=== PATIENT | female | born 1975 | race American Indian/Alaskan Native ===

== ENCOUNTER 2017-05-05 02:12 | Inpatient (IN) | payer BC ==
[2017-05-05] MEDS ORDERED: ASPIRIN PO ONE ×2 (02:46→12:00)
--- NOTE | 2017-05-05 03:11 | XRay Report ---
FINAL REPORT EXAM: XR CHEST ROUTINE 2V HISTORY: sob cough TECHNIQUE: PA and lateral views of the chest were submitted. FINDINGS: The heart is mildly enlarged. The lungs reveal mild interstitial prominence which is non specific. There are no localized infiltrates or effusions. The skeletal structures are well-maintained IMPRESSION: Mild cardiomegaly. Mild interstitial prominence which is non specific. No evidence of localized infiltrates or vascular congestion otherwise.
[2017-05-05 03:35] LABS: Basophils # (Auto) 0.1 K/mm3 (0.0-0.1); Eosinophils # (Auto) 0.2 K/mm3 (0.0-0.4); Hematocrit 45.5 % (30.3-42.9); Hemoglobin 14.7 gm/dl (10.1-14.3); Lymphocytes # (Auto) 3.1 K/mm3 (1.2-5.4); Lymphocytes % (Auto) 31.8 % (13.4-35.0); Mean Corpuscular HGB Conc 32 % (30-34); Mean Corpuscular Volume 74 fl (79-97); Monocytes # (Auto) 0.5 K/mm3 (0.0-0.8); Monocytes % (Auto) 5.1 % (0.0-7.3); Platelet Count 196 K/mm3 (140-440); Red Blood Count 6.12 M/mm3 (3.65-5.03); Red Cell Distribution Width 17.4 % (13.2-15.2)
[2017-05-05 03:36] LABS: Mean Corpuscular Hemoglobin 24 pg (28-32)
[2017-05-05 03:58] LABS: BUN/Creatinine Ratio 11; Blood Urea Nitrogen 11 mg/dL (7-17); Calcium 9.2 mg/dL (8.4-10.2); Hemolysis Index 6
[2017-05-05] MEDS ORDERED: NITRO-BID 2% TP ONE (04:17)
[2017-05-05] MEDS ORDERED: CATAPRES PO ONE (04:17)
[2017-05-05] MEDS ORDERED: ASPIRIN ONE (06:21)
--- NOTE | 2017-05-05 07:11 | Emergency Department Report ---
ED Chest Pain HPI - General Chief Complaint: Chest Pain Stated Complaint: CHEST PAIN,SOB Time Seen by Provider: 05/05/17 06:15 Source: patient Mode of arrival: Ambulatory Limitations: No Limitations - History of Present Illness Initial Comments: 41yo female with a past medical history of obesity, previous hypertension (not currently on meds), and tobacco use presents to the hospital complains of sudden onset of chest tightness that woke her from sleep last night. Positive associated shortness of breath. Pain is intermittent and resolved after nitroglycerin placement here in the ED. Patient denies nausea, vomiting, or diaphoresis. Patient denies calf tenderness, edema, history of DVT/PE, or recent travel. Patient states that she had hypertension in the past but has been off meds for 1 year. BP was checked 2 weeks ago when she went to receive her postmenopausal hormone replacement BIOTEE shot. Patient denies any recent dyspnea on exertion, orthopnea, PND prior to arrival. Patient states that her grandfather of [place] in his 30's Severity scale (0 -10): 9 - Related Data Previous Rx's Medication Instructions Recorded Last Taken Type Benzonatate [Tessalon Perles] 100 mg PO Q8HR PRN #20 capsule 11/06/15 Unknown Rx hydrALAZINE [Apresoline TAB] 10 mg PO Q8H #90 tablet 11/06/15 Unknown Rx Allergies Allergy/AdvReac Type Severity Reaction Status Date / Time nickel Allergy Rash Verified 11/06/15 06:48 Heart Score - HEART Score History: Moderately suspicious EKG: Non-specific Age: < 45 Risk factors: > 3 risk factors or hx of atherosclerotic disease Troponin: < normal limit HEART Score: 4 ED Review of Systems ROS: Stated complaint: CHEST PAIN,SOB Other details as noted in HPI Comment: All other systems reviewed and negative Other: Constitutional: No fevers chills Eyes: No eye pain visual changes ENT: No ear pain or throat pain Neck: Denies pain Respiratory: Denies cough wheezing Cardiovascular: Denies palpitations, syncope GI: Denies abdominal pain, nausea, vomiting, diarrhea : Denies dysuria Musculoskeletal: Denies back pain Skin: Denies rash, lesions, erythema Neurologic: Denies headache, numbness, weakness Psychiatric: Denies suicidal ideation, hallucinations ED Past Medical Hx - Past Medical History Previous Medical History?: Yes Hx Hypertension: Yes - Surgical History Past Surgical History?: Yes Additional Surgical History: Hyst 2006 - Social History Smoking Status: Current Every Day Smoker Substance Use Type: Alcohol - Medications Home Medications: Home Medications Medication Instructions Recorded Confirmed Last Taken Type Benzonatate [Tessalon Perles] 100 mg PO Q8HR PRN #20 capsule 11/06/15 Unknown Rx hydrALAZINE [Apresoline TAB] 10 mg PO Q8H #90 tablet 11/06/15 Unknown Rx ED Physical Exam - General Limitations: No Limitations - Other Other exam information: General: No limitations, patient is alert in no acute distress Head exam: Atraumatic, normocephalic Eyes exam: Normal appearance, pupils equal reactive to light, extraocular movements intact ENT: Moist mucous membrane, normal oropharynx Neck exam: Normal inspection, full range of motion, no meningismus nontender Respiratory exam: Clear to auscultation bilateral, no wheezes, rales, crackles Cardiovascular: Normal rate and rhythm, normal heart sounds. Chest wall nontender Abdomen: Soft, nondistended, and nontender, with normal bowel sounds, no rebound, or guarding Extremity: Full range of motion normal inspection no deformity, no calf tenderness or edema Back: Normal Inspection, full range of motion, no calf tenderness Neurologic: Alert, oriented x3, cranial nerves intact , no motor or sensory deficit Psychiatric: normal affect, normal mood Skin: Warm, dry, intact ED Course Vital Signs 05/05/17 05/05/17 05/05/17 02:43 03:27 04:00 Temperature 98.5 F 98.1 F Pulse Rate 92 H 94 H 87 Respiratory 17 17 14 Rate Blood Pressure 210/127 214/137 Blood Pressure 211/144 [Left] O2 Sat by Pulse 99 100 99 Oximetry 05/05/17 05/05/17 05/05/17 04:33 04:34 05:00 Temperature Pulse Rate 89 89 81 Respiratory 22 Rate Blood Pressure 217/136 217/136 197/135 Blood Pressure [Left] O2 Sat by Pulse 99 Oximetry 05/05/17 05/05/17 05/05/17 05:30 06:00 06:30 Temperature Pulse Rate 77 78 81 Respiratory 22 19 25 H Rate Blood Pressure 178/116 178/116 173/109 Blood Pressure [Left] O2 Sat by Pulse 98 96 98 Oximetry - Reevaluation(s) Reevaluation #1: 05/05/17 08:30 pain remains controlled. BP trending downward ODALIS score - Odalis Score Age > 65: (0) No Aspirin use within the Past 7 Days: (0) No 3 or more CAD Risk Factors: (1) Yes 2 or more Angina events in past 24 hrs: (1) Yes Known CAD with more than 50% Stenosis: (0) No Elevated Cardiac Markers: (0) No ST Deviation Greater than 0.5mm: (0) No ODALIS Score: 2 ED Medical Decision Making - Lab Data Result diagrams: 05/05/17 03:06 05/05/17 03:06 Lab Results 05/05/17 05/05/17 05/05/17 Range/Units 03:06 03:06 06:07 WBC 9.8 (4.5-11.0) K/mm3 RBC 6.12 H (3.65-5.03) M/mm3 Hgb 14.7 H (10.1-14.3) gm/dl Hct 45.5 H (30.3-42.9) % MCV 74 L (79-97) fl MCH 24 L (28-32) pg MCHC 32 (30-34) % RDW 17.4 H (13.2-15.2) % Plt Count 196 (140-440) K/mm3 Lymph % (Auto) 31.8 (13.4-35.0) % Tama % (Auto) 5.1 (0.0-7.3) % Eos % (Auto) 2.0 (0.0-4.3) % Baso % (Auto) 1.0 (0.0-1.8) % Lymph # 3.1 (1.2-5.4) K/mm3 Tama # 0.5 (0.0-0.8) K/mm3 Eos # 0.2 (0.0-0.4) K/mm3 Baso # 0.1 (0.0-0.1) K/mm3 Seg Neutrophils % 60.1 (40.0-70.0) % Seg Neutrophils # 5.9 (1.8-7.7) K/mm3 D-Dimer (0-234) ng/mlDDU Sodium 138 (137-145) mmol/L Potassium 3.8 (3.6-5.0) mmol/L Chloride 100.8 (98-107) mmol/L Carbon Dioxide 25 (22-30) mmol/L Anion Gap 16 mmol/L BUN 11 (7-17) mg/dL Creatinine 1.0 (0.7-1.2) mg/dL Estimated GFR > 60 ml/min BUN/Creatinine Ratio 11 % Glucose 107 H (65-100) mg/dL Calcium 9.2 (8.4-10.2) mg/dL Troponin T 0.014 0.023 (0.00-0.029) ng/mL NT-Pro-B Natriuret Pep 3105 H (0-450) pg/mL 05/05/17 Range/Units 07:01 WBC (4.5-11.0) K/mm3 RBC (3.65-5.03) M/mm3 Hgb (10.1-14.3) gm/dl Hct (30.3-42.9) % MCV (79-97) fl MCH (28-32) pg MCHC (30-34) % RDW (13.2-15.2) % Plt Count (140-440) K/mm3 Lymph % (Auto) (13.4-35.0) % Tama % (Auto) (0.0-7.3) % Eos % (Auto) (0.0-4.3) % Baso % (Auto) (0.0-1.8) % Lymph # (1.2-5.4) K/mm3 Tama # (0.0-0.8) K/mm3 Eos # (0.0-0.4) K/mm3 Baso # (0.0-0.1) K/mm3 Seg Neutrophils % (40.0-70.0) % Seg Neutrophils # (1.8-7.7) K/mm3 D-Dimer 341.64 H (0-234) ng/mlDDU Sodium (137-145) mmol/L Potassium (3.6-5.0) mmol/L Chloride (98-107) mmol/L Carbon Dioxide (22-30) mmol/L Anion Gap mmol/L BUN (7-17) mg/dL Creatinine (0.7-1.2) mg/dL Estimated GFR ml/min BUN/Creatinine Ratio % Glucose (65-100) mg/dL Calcium (8.4-10.2) mg/dL Troponin T (0.00-0.029) ng/mL NT-Pro-B Natriuret Pep (0-450) pg/mL - EKG Data -: EKG Interpreted by Me EKG shows normal: sinus rhythm, axis (QRS -26), QRS complexes (106), ST-T waves (lat t wave inv, LVH. No STEMI) Rate: normal (98) - EKG Data When compared to previous EKG there are: no significant change 05/05/17 07:50 No acute changes are repeat EKGs 2 - Radiology Data Radiology results: report reviewed Read by radiologist Chest x-ray: Moderate cardiomegaly. Mild interstitial prominence which is nonspecific. No evidence of localized infiltrate or vascular congestion otherwise. CT angio chest: No Pulmonary embolus, non remarkable exam - Medical Decision Making Chest pain/shortness of breath Pain improved after nitroglycerin paste She received aspirin EKG unchanged Enzymes negative 2 Patient has elevated d-dimer by CT and exam negative for PE or acute findings. BNP elevated but no signs of pulmonary edema at this time Uncontrolled hypertension Mild reduction after clonidine and nitroglycerin paste Patient not currently on meds Hospitalist informed for admission - Differential Diagnosis SC, unstable angina, PE, CHF, dissection Critical Care Time: No Critical care attestation.: If time is entered above; I have spent that time in minutes in the direct care of this critically ill patient, excluding procedure time. ED Disposition Clinical Impression: Chest pain, SOB (shortness of breath), Uncontrolled hypertension Disposition: OP ADMIT IP TO THIS HOSP Is pt being admited?: Yes Does the pt Need Aspirin: Yes Condition: Stable Time of Disposition: 08:23 (Dr Welch/Nixon/hospitalist)
[2017-05-05] MEDS ORDERED: LASIX IV ONE (07:43)
--- NOTE | 2017-05-05 08:18 | Cat Scan Report ---
CTA CHEST: HISTORY: Chest pain. COMPARISON: none. TECHNIQUE: Helical CT in 1.25mm intervals following IV contrast. Pulmonary embolus protocol. Sagittal and coronal reformatted images. Rotational MIP images. FINDINGS: Contrast bolus is satisfactory. No pulmonary embolus is identified. Thyroid gland: Normal. Tracheobronchial tree: Normal. Esophagus: Normal. Heart: Borderline heart size. Pericardium: Normal. Mediastinum: Normal. Lung Jaeger: normal. Pleural Spaces: Normal. Musculoskeletal: Normal. IMPRESSION: No evidence for pulmonary embolus. Unremarkable CT chest with contrast.
--- NOTE | 2017-05-05 09:55 | History and Physical Report ---
History of Present Illness Date of examination: 05/05/17 Date of admission: 05/05/17 08:29 Chief complaint: chest pain History of present illness: 41yo female with a past medical history of obesity, hypertension (not currently on meds), and tobacco abuse presents to the hospital complains of sudden onset of chest tightness that woke her from sleep last night associated with shortness of breath. Patient denies nausea, vomiting, or diaphoresis. Patient denies calf tenderness, edema, history of DVT/PE, or recent travel. Patient denies any recent dyspnea on exertion, orthopnea, PND prior to arrival. Pain is intermittent and resolved after receiving nitroglycerin here in the ED. Patient states that she had hypertension in the past but has been off meds for 1 year since she lost her job. BP was checked 2 weeks ago when she went to receive her postmenopausal hormone replacement BIOTEE shot, states that time it was normal. Her BP in the ER was 210/127. She has negative troponin, CXR no infiltrates, CTA chest negative for PE. She is getting admitted for further evaluation and management. Past medical History: h/o HTN not on any medication Past surgical History: s/p Hysterectomy on 2006 Social History: Lives with family, + 1/2 pack perday smoking, social drinking and no elicit drug abuse. Family History: Significant for HD and CVA in the family. Patient states that her grandfather of [place] in his 30's. Review of System: Constitutional: no fever, no chills, no weight loss Ears, eyes, nose, mouth and throat: no nasal congestion, no nasal discharge, no sinus pressure, no vision change, no red eye. Neck: No neck pain or rigidity. Cardiovascular: +chest pain, no orthopnea, no palpitations, no leg swelling Respiratory: + shortness of breath, no cough, no congestion, no wheezing Gastrointestinal: no abdominal pain, no nausea, no vomiting Genitourinary : no dysuria, no hematuria Musculoskeletal: no joint swelling or muscle ache Integumentary: no rash, no pruritis Neurological: no parathesias, no numbness, no tingling Endocrine: no cold or heat intolerance, no polyuria or polydipsia Hematologic/Lymphatic: no easy bruising, no easy bleeding, no gland swelling Allergic/Immunologic: no urticaria, no angioedema. Medications and Allergies Allergies Allergy/AdvReac Type Severity Reaction Status Date / Time nickel Allergy Rash Verified 11/06/15 06:48 Home Medications Medication Instructions Recorded Confirmed Last Taken Type No Known Home Medications [No 05/05/17 05/05/17 Unknown History Reported Home Medications] Exam - Physical Exam Narrative exam: GENERAL: well-developed and well-nourished lying on bed appeared to be in no discomfort. HEENT: Normocephalic. Atraumatic. No conjunctival congestion or icterus. Patient has moist mucous membranes. NECK: Supple. Trachea midline. CHEST/LUNGS: Clear to auscultated bilaterally, breathing nonlabored. No wheezes crackles or rhonchi. HEART/CARDIOVASCULAR: Regular in rate and rhythm. S1 and S2 positive. ABDOMEN: Abdomen is soft, nontender. Patient has normal bowel sounds. SKIN: There is no rash. Warm and dry. NEURO: No focal motor deficit. Follows command. MUSCULOSKELETAL: No joint effusion or tenderness. EXTRIMITY: No edema, no cyanosis or clubbing. PSYCH: Cooperative. - Constitutional Vitals: Temp Pulse Resp BP Pulse Ox 98.1 F 73 16 130/83 100 05/05/17 03:27 05/05/17 09:39 05/05/17 09:39 05/05/17 09:39 05/05/17 09:39 Results - Labs CBC & Chem 7: 05/05/17 03:06 05/05/17 03:06 Labs: Abnormal lab results 05/05/17 05/05/17 05/05/17 Range/Units 03:06 03:06 07:01 RBC 6.12 H (3.65-5.03) M/mm3 Hgb 14.7 H (10.1-14.3) gm/dl Hct 45.5 H (30.3-42.9) % MCV 74 L (79-97) fl MCH 24 L (28-32) pg RDW 17.4 H (13.2-15.2) % D-Dimer 341.64 H (0-234) ng/mlDDU Glucose 107 H (65-100) mg/dL NT-Pro-B Natriuret Pep 3105 H (0-450) pg/mL - Imaging and Cardiology Chest x-ray: report reviewed (no, infiltrates, mild cardiomegaly) CT scan - chest: report reviewed (no PE) Assessment and Plan // Chest pain - We will rule out ACS, pt with h/o HTN untreated, strong FH and tobacco abuse - will admit to telemetry bed - monitor with serial CE and EKG - will place on Aspirin, statin - as needed SL NTG and iv morphin for pain - Monitor BP, add betablocker and ACEI - order 2D echo and stress test in the am, when BP stabilizes - cardiac diet now, NPO after midnight - provide DVT Px with lovenox // Hypertensive urgency - We'll place on BP medications - Hydralazine iv as needed - Adjust medications to keep SBP less than 160, in first 12h // Tobacco abuse/ Noncompliance - counseled
[2017-05-05] MEDS ORDERED: ZESTRIL PO SCH (10:00)
[2017-05-05] MEDS ORDERED: LASIX ONE (10:00)
[2017-05-05] MEDS ORDERED: TYLENOL ONE (10:02)
[2017-05-05] MEDS ORDERED: TYLENOL PO ONE (10:19)
[2017-05-05] MEDS: ASPIRIN PR SCH (11:07)
[2017-05-05] MEDS ORDERED: NITROSTAT SL PRN (11:30)
[2017-05-05] MEDS ORDERED: SODIUM CHLORIDE FLUSH SYRINGE 10 ML IV PRN (11:30)
[2017-05-05] MEDS ORDERED: MORPHINE IV PRN (11:30)
[2017-05-05] MEDS ORDERED: APRESOLINE IV PRN (11:30)
[2017-05-05] MEDS: PROTONIX PO SCH (11:35)
[2017-05-05] MEDS: HCTZ PO SCH (11:35)
[2017-05-05] MEDS: ZESTRIL PO SCH (11:35)
[2017-05-05] MEDS: COREG PO SCH ×2 (11:37→21:18)
[2017-05-05 12:33] LABS: Chol/HDL Ratio 5.31 %
--- NOTE | 2017-05-05 14:21 | Consultation ---
History of Present Illness Consult date: 05/05/17 Consult reason: chest pain History of present illness: The patient is a 41-year-old woman with a history of hypertension, for which she has not been on medical therapy. She reports that she was on blood pressure therapy several years ago and stopped when her blood pressure normalized while on medications. She presents to the hospital at this time with complaints of sudden onset of chest tightness and shortness of breath which awoke her from sleep. She presented to the emergency room where her blood pressure was 210 systolic. Since her presentation, there has been no further chest pain. Her blood pressure is currently in the 140s to 150s systolic on lisinopril and clonidine. There is no palpitations, no lower extremity edema, no history of syncope and no prior cardiac history. ECG on presentation was a sinus rhythm with left ventricular hypertrophy and marked repolarization abnormalities of LVH. The ECG is not significantly different from previous ECG done in 2016. Cardiac isoenzymes are negative. Chest x-ray reveals no edema, but the cardiac silhouette is enlarged. Comorbidities include chronic tobacco abuse. Past History Past Medical History: hypertension Medications and Allergies Allergies Allergy/AdvReac Type Severity Reaction Status Date / Time nickel Allergy Rash Verified 11/06/15 06:48 Home Medications Medication Instructions Recorded Confirmed Last Taken Type No Known Home Medications [No 05/05/17 05/05/17 Unknown History Reported Home Medications] Active Meds: Active Medications Aspirin (Aspirin) 300 mg MO QDAY [facility] Last Admin: 05/05/17 11:07 Dose: Not Given Atorvastatin Calcium (Lipitor) 40 mg PO QHS [facility] Carvedilol (Coreg) 6.25 mg PO BID [facility] Last Admin: 05/05/17 11:37 Dose: 6.25 mg Hydralazine HCl (Apresoline) 10 mg IV Q6H PRN PRN Reason: FOR SBP > target Hydrochlorothiazide (Hctz) 25 mg PO QDAY [facility] Last Admin: 05/05/17 11:35 Dose: 25 mg Lisinopril (Zestril) 20 mg PO QDAY [facility] Last Admin: 05/05/17 11:35 Dose: 20 mg Morphine Sulfate (Morphine) 2 mg IV Q5MIN PRN PRN Reason: Chest Pain Nitroglycerin (Nitrostat) 0.4 mg SL Q5M PRN PRN Reason: Chest Pain Pantoprazole Sodium (Protonix) 40 mg PO QDAY [facility] Last Admin: 05/05/17 11:35 Dose: 40 mg Sodium Chloride (Sodium Chloride Flush Syringe 10 Ml) 10 ml IV PRN PRN PRN Reason: LINE FLUSH Zolpidem Tartrate (Ambien) 5 mg PO QHS PRN PRN Reason: Sleep Review of Systems Cardiovascular: chest pain, shortness of breath, no orthopnea, no palpitations, no rapid/irregular heart beat, no edema, no syncope, no lightheadedness Physical Examination Vital Signs Temp Pulse Resp BP Pulse Ox 98.5 F 92 H 17 210/127 99 05/05/17 02:43 05/05/17 02:43 05/05/17 02:43 05/05/17 02:43 05/05/17 02:43 General appearance: no acute distress HEENT: Positive: PERRL Neck: Positive: neck supple Cardiac: Positive: Reg Rate and Rhythm Lungs: Positive: Decreased Breath Sounds Neuro: Positive: Grossly Intact Abdomen: Positive: Soft Female genitourinary: deferred Skin: Positive: Clear Extremities: Absent: edema Results 05/05/17 03:06 05/05/17 03:06 Lipids 05/05/17 Range/Units 10:21 Triglycerides 65 (2-149) mg/dL Cholesterol 250 H (50-199) mg/dL HDL Cholesterol 47 (40-59) mg/dL Cholesterol/HDL Ratio 5.31 % CBC 05/05/17 Range/Units 03:06 WBC 9.8 (4.5-11.0) K/mm3 RBC 6.12 H (3.65-5.03) M/mm3 Hgb 14.7 H (10.1-14.3) gm/dl Hct 45.5 H (30.3-42.9) % Plt Count 196 (140-440) K/mm3 Lymph # 3.1 (1.2-5.4) K/mm3 [place] # 0.5 (0.0-0.8) K/mm3 Eos # 0.2 (0.0-0.4) K/mm3 Baso # 0.1 (0.0-0.1) K/mm3 Comprehensive Metabolic Panel 05/05/17 Range/Units 03:06 Sodium 138 (137-145) mmol/L Potassium 3.8 (3.6-5.0) mmol/L Chloride 100.8 (98-107) mmol/L Carbon Dioxide 25 (22-30) mmol/L BUN 11 (7-17) mg/dL Creatinine 1.0 (0.7-1.2) mg/dL Glucose 107 H (65-100) mg/dL Calcium 9.2 (8.4-10.2) mg/dL EKG interpretations - Telemetry EKG Rhythm: Sinus Rhythm Assessment and Plan - Patient Problems (1) Chest pain Current Visit: Yes Status: Acute Plan to address problem: Chest pain is atypical, the isolated shortness of breath at rest does not appear consistent with cardiac ischemia. The patient reports a recent exercise program during which she walks for 30 minutes at the time on a daily basis. There has been no exertional complaints. After optimal blood pressure control, we'll plan a predischarge Persantin thallium stress test. (2) Uncontrolled hypertension Current Visit: Yes Status: Acute Plan to address problem: Blood pressure control and CECILIO or ARB in addition to the beta jeniffer. Echocardiogram will be done for left ventricular function assessment.
[2017-05-05] MEDS ORDERED: AMBIEN PO PRN (22:00)
[2017-05-06] MEDS ORDERED: LEXISCAN IV ONE ×2 (08:57→08:58)
--- NOTE | 2017-05-06 11:17 | Progress Note ---
Assessment and Plan Cardiomyopathy LVEF 40-45% Reversible lateral wall defect on MPI Limiting shortness of breath on stress treadmill test Systemic Hypertension Hyperlipidemia Acute combined systolic and diastolic heart failure Recommendations: IV lasix 40 mg x 1 dose today Coronary angiography in am Subjective Date of service: 05/06/17 Principal diagnosis: Chest Pain Interval history: Patient underwent a stress MPI today - no complications Objective Vital Signs Temp Pulse Resp Resp BP BP Pulse Ox 05/06/17 10:00 61 05/06/17 09:19 98.3 F 61 18 142/84 100 05/06/17 07:36 98.3 F 60 18 142/84 100 05/06/17 06:13 98.2 F 64 18 163/92 99 05/06/17 00:25 98.3 F 65 20 125/66 100 05/05/17 21:18 63 149/74 05/05/17 20:55 18 98 05/05/17 20:52 18 05/05/17 19:59 18 05/05/17 19:55 98.0 F 63 20 149/74 96 05/05/17 19:36 65 05/05/17 17:52 98.2 F 60 18 143/88 98 05/05/17 16:45 68 99 05/05/17 15:09 55 L 05/05/17 12:52 98.2 F 55 L 18 152/102 98 05/05/17 11:37 61 97 - Physical Examination HEENT: Positive: PERRL Neck: Positive: neck supple Cardiac: Positive: Reg Rate and Rhythm Lungs: Positive: Normal Exam Neuro: Positive: Grossly Intact Abdomen: Positive: Soft Skin: Positive: Clear Extremities: Absent: edema - Labs and Meds Lipids 05/05/17 Range/Units 10:21 Triglycerides 65 (2-149) mg/dL Cholesterol 250 H (50-199) mg/dL HDL Cholesterol 47 (40-59) mg/dL Cholesterol/HDL Ratio 5.31 %
[2017-05-06] MEDS ORDERED: LASIX IV NR (12:00)
[2017-05-06] MEDS ORDERED: NACL 0.9% 500 ML 500 ML IV SCH (12:00)
[2017-05-06] MEDS: HCTZ PO SCH (12:12)
[2017-05-06] MEDS: ZESTRIL PO SCH (12:12)
[2017-05-06] MEDS: PROTONIX PO SCH (12:12)
[2017-05-06] MEDS: ASPIRIN PR SCH (12:12)
[2017-05-06] MEDS: COREG PO SCH ×2 (12:12→22:57)
[2017-05-06 12:21] LABS: INR 0.94 (0.87-1.13)
--- NOTE | 2017-05-06 12:43 | Treadmill Report ---
INDICATION: Chest pain. ORDERING PHYSICIAN: ____ FINDINGS: 1. This is a good quality myocardial perfusion scan. 2. There is evidence of a reversal of the septal to lateral counts noted on the stress imaging suggesting ischemia in the circumflex distribution. The left ventricle is normal in size; however, there is severe global left ventricular hypokinesis. The left ventricular ejection fraction is measured at 24%. The patient did experience limiting shortness of breath while walking on the treadmill. IMPRESSION: 1. A high-risk myocardial perfusion scan associated with a 1-year cardiovascular event of greater than 3%. 2. Findings are suggestive of ischemia in the circumflex artery distribution. 3. Severely hypokinetic left ventricle with an ejection fraction measured at 24%. 4. Limiting shortness of breath on the treadmill. 5. Clinical correlation is recommended. JOB# [id number]/[id number]
--- NOTE | 2017-05-06 13:19 | Progress Note ---
Assessment and Plan // Chest pain likely due to CAD - pt with h/o HTN untreated, strong FH and tobacco abuse - Reversible lateral wall defect on MPI, Limiting shortness of breath on stress treadmill test - will cont on Aspirin, statin - as needed SL NTG and iv morphin for pain - cardiac diet now, NPO after midnight for Coronary angiography // Hypertensive urgency - We'll adjust BP medications to keep BP <140 - Hydralazine iv as needed // Hyperlipidemia, cont statin // Acute combined systolic and diastolic heart failure - LVEF 40-45% - cont BB, AcEi, diuretics // Tobacco abuse/ Noncompliance - counseled Brief history: 41-year-old female with a history of hypertension not on any home medications, tobacco abuse presented to the hospital with sudden onset of intermittent chest pain for 1 day. Radiological test: Chest x-ray: report reviewed (no, infiltrates, mild cardiomegaly) CT scan - chest: report reviewed (no PE) Myocardial stress stress: High risk myocardial perfusion scan associated with one-year cardiovascular event of greater than 3%, findings are suggestive of ischemia in the circumflex artery distribution, severe to 11 ventricle with an ejection fraction measured at 24%. Limiting shortness of breath on the treadmill. 2-D echocardiogram; Global left ventricular systolic function is mildly decreased, estimated EF 40-45% Hospitalist Physical exam: GENERAL: well-developed and well-nourished AAF lying on bed appeared to be in no discomfort. HEENT: Normocephalic. Atraumatic. No conjunctival congestion or icterus. Patient has moist mucous membranes. NECK: Supple. Trachea midline. CHEST/LUNGS: Clear to auscultated bilaterally, breathing nonlabored. No wheezes crackles or rhonchi. HEART/CARDIOVASCULAR: Regular in rate and rhythm. S1 and S2 positive. ABDOMEN: Abdomen is soft, nontender. Patient has normal bowel sounds. SKIN: There is no rash. Warm and dry. NEURO: No focal motor deficit. Follows command. MUSCULOSKELETAL: No joint effusion or tenderness. EXTRIMITY: No edema, no cyanosis or clubbing. PSYCH: Cooperative. Subjective Date of service: 05/06/17 Principal diagnosis: Chest Pain Interval history: Patient seen and examined. Medical records and medication list reviewed. No acute event overnight noted by the RN. Patient denies any chest pain or difficulty breathing. Patient is tolerating diet. Discussed plan of care at bedside with patient. Objective - Constitutional Vitals: Vital Signs - 12hr 05/06/17 05/06/17 05/06/17 06:13 07:36 09:19 Temperature 98.2 F 98.3 F 98.3 F Pulse Rate 64 60 61 Pulse Rate [ From Monitor] Respiratory 18 18 18 Rate Blood Pressure 163/92 142/84 Blood Pressure 142/84 [Left] O2 Sat by Pulse 99 100 100 Oximetry 05/06/17 05/06/17 05/06/17 10:00 11:44 12:12 Temperature 97.6 F Pulse Rate 61 68 68 Pulse Rate [ 60 From Monitor] Respiratory 18 Rate Blood Pressure 150/88 Blood Pressure 150/88 [Left] O2 Sat by Pulse 100 98 Oximetry - Labs CBC & Chem 7: 05/05/17 03:06 05/05/17 03:06
[2017-05-07 06:03] LABS: INR 0.95 (0.87-1.13)
[2017-05-07 06:04] LABS: Partial Thromboplastin Time 31.5 Sec. (24.2-36.6)
[2017-05-07] MEDS ORDERED: NACL 0.9% 500 ML 500 ML ONE (08:29)
[2017-05-07] MEDS ORDERED: NITROGLYCERIN SYRINGE 3 ML ONE (09:24)
[2017-05-07] MEDS ORDERED: HEPARIN/NS 5000 UNIT/500ML(CATH LAB) 1,000 ML IR ONE (09:24)
[2017-05-07] MEDS ORDERED: HEPARIN 10,000 UNITS/10 ML ONE (09:24)
[2017-05-07] MEDS ORDERED: XYLOCAINE 2% INFILTRATI ONE (09:24)
[2017-05-07] MEDS ORDERED: CALAN ONE (09:24)
[2017-05-07] MEDS ORDERED: SUBLIMAZE ONE (09:25)
[2017-05-07] MEDS ORDERED: BENADRYL ONE (09:25)
[2017-05-07] MEDS: VERSED ONE ×2 (09:55→10:07)
--- NOTE | 2017-05-07 10:53 | Event Note ---
Date: 05/07/17 Cardiac cath completed via R radial. No complications. Findings: 1. Moderate diffuse atherosclerosis of a small diagonal branch of LAD 2. Otherwise, angiographically normal coronaries. 3. Nonischemic CM, EF 35-40%. Recommend medical therapy for NICM and HTN management.
--- NOTE | 2017-05-07 11:01 | Cardiac Catherization Report ---
REASON FOR PROCEDURE: Chest pain and abnormal thallium stress test. DESCRIPTION OF PROCEDURE: The patient was prepped and draped in a sterile fashion after informed consent. The right radial cath site was prepped and draped after a negative French's test. The right radial artery was entered using Seldinger technique followed by placement of a 6-Kazakh sheath. Selective left and right coronary angiography was performed. A #3.5 left Harlan was used for left coronary angiography. A #4 right Harlan was used for right coronary angiography. The pigtail catheter was used for left ventricular angiography. The catheters were removed, sheaths removed, and hemostasis achieved using manual compression. The patient was returned to the postprocedure unit in stable condition. There were no complications. FINDINGS: HEMODYNAMICS: Left ventricle end diastolic pressure was 30, following coronary angiography. Ascending aortic pressure was 180/100. There was no significant pressure gradient on pullback across the aortic valve. CORONARY ANGIOGRAPHY: Left main coronary artery was short, free of significant disease. A small caliber first diagonal branch of the LAD contained diffuse moderate atherosclerosis. Otherwise, the LAD and the rest of the diagonal vessels were free of significant disease. The circumflex artery and its obtuse marginal branches were free of significant disease. The right coronary artery was dominant and angiographically normal. The left ventricle was mildly dilated. There was [id number] left ventricular systolic dysfunction with diffuse hypokinesis, left ventricular ejection fraction of 35-40%. CONCLUSION: 1. Diffuse atherosclerosis of small caliber first diagonal branch of the LAD, otherwise angiographically normal coronary arteries. 2. Uwrb-mg-egorjwll nonischemic cardiomyopathy, left ventricular ejection fraction 35-40%. RECOMMENDATIONS: 1. Risk factor modification. 2. Medical therapy. JOB# [id number] CA/NTS
[2017-05-07] MEDS: COREG PO SCH ×2 (11:31→21:45)
[2017-05-07] MEDS: ZESTRIL PO SCH ×2 (11:32→17:52)
[2017-05-07] MEDS: PROTONIX PO SCH (11:32)
[2017-05-07] MEDS: HCTZ PO SCH (11:32)
--- NOTE | 2017-05-07 13:12 | Discharge Summary ---
Providers - Providers Date of Admission: 05/05/17 08:29 Date of discharge: 05/08/17 Attending physician: FORD FAROOQ 05/05/17 Consult to Cardiac Rehabilitation [CONS] Routine Reason For Exam: Phase I 05/05/17 09:55 Consult to Cardiology [CONS] Routine Consulting Provider: CHRISTINE FERGUSON Reason For Exam: chest pain 05/05/17 12:02 Consult to Physician [CONS] Routine Consulting Provider: CHRISTINE FERGUSON Reason For Exam: Chest Pain Place consult to:: Dr. Raj. Ferguson Notified:: Ramona ENAMORADO Was contact made?: Yes If yes, spoke with:: Renetta Huston Time called:: 12:01 Primary care physician: LESLIE QUINTERO Hospitalization Condition: Stable Hospital course: Brief history: 41-year-old female with a history of hypertension not on any home medications, tobacco abuse presented to the hospital with sudden onset of intermittent chest pain for 1 day. Discharge diagnosis and management: // Chest pain due to CAD - pt with h/o HTN untreated, strong FH and tobacco abuse - Placed on Aspirin, statin, as needed SL NTG and iv morphin for pain, cardiac diet - Cardiology was consulted. CE normal with no acute change in EKG - Reversible lateral wall defect on MPI, Limiting shortness of breath on stress treadmill test - Coronary angiography showed Moderate diffuse atherosclerosis of a small diagonal branch of LAD - cardiology recommended medical management // Hypertensive urgency - Adjust BP medications to keep BP <140, Hydralazine iv as needed - BP was better controlled with coreg, HcTZ, amlodipine and lisinopril // Hyperlipidemia, cont statin // Acute combined systolic and diastolic heart failure - LVEF 40-45% - cont BB, AcEi, CCB, diuretics // Tobacco abuse/ Noncompliance - counseled // Chronic headache added fiorecet, refused CT head Radiological test: Chest x-ray: report reviewed (no, infiltrates, mild cardiomegaly) CT scan - chest: report reviewed (no PE) Myocardial stress stress: High risk myocardial perfusion scan associated with one-year cardiovascular event of greater than 3%, findings are suggestive of ischemia in the circumflex artery distribution, severe to 11 ventricle with an ejection fraction measured at 24%. Limiting shortness of breath on the treadmill. 2-D echocardiogram; Global left ventricular systolic function is mildly decreased, estimated EF 40-45% Cardiac cath completed via R radial. No complications. Findings: 1. Moderate diffuse atherosclerosis of a small diagonal branch of LAD 2. Otherwise, angiographically normal coronaries. 3. Nonischemic CM, EF 35-40%. Hospitalist Physical exam: GENERAL: well-developed and well-nourished AAF lying on bed appeared to be in no discomfort. HEENT: Normocephalic. Atraumatic. No conjunctival congestion or icterus. Patient has moist mucous membranes. NECK: Supple. Trachea midline. CHEST/LUNGS: Clear to auscultated bilaterally, breathing nonlabored. No wheezes crackles or rhonchi. HEART/CARDIOVASCULAR: Regular in rate and rhythm. S1 and S2 positive. ABDOMEN: Abdomen is soft, nontender. Patient has normal bowel sounds. SKIN: There is no rash. Warm and dry. NEURO: No focal motor deficit. Follows command. MUSCULOSKELETAL: No joint effusion or tenderness. EXTRIMITY: No edema, no cyanosis or clubbing. PSYCH: Cooperative. Disposition: - TO HOME OR SELFCARE Time spent for discharge: 32 minutes Core Measure Documentation - Palliative Care Palliative Care/ Comfort Measures: Not Applicable - Core Measures Any of the following diagnoses?: none Exam - Constitutional Vitals: Temp Pulse Resp BP Pulse Ox 98.0 F 74 19 183/101 97 05/07/17 12:36 05/07/17 12:36 05/07/17 12:36 05/07/17 12:36 05/07/17 12:36 Plan Activity: advance as tolerated Weight Bearing Status: Weight Bear as Tolerated Diet: low fat, low salt Additional Instructions: f/u with cardiology in two weeks Follow up with: LESLIE QUINTERO MD [Primary Care Provider] - 3-5 Days Prescriptions: AtorvaSTATin [Lipitor] 40 mg PO QHS #30 tablet amLODIPine [Norvasc] 10 mg PO QDAY #30 tablet Aspirin [Aspirin BABY CHEW TAB] 81 mg PO QDAY #30 tab.chew Butalb/Acetamin/Caff 50-325-40 [Fioricet] 1 tab PO Q6HR PRN #30 tab PRN Reason: Headache Carvedilol [Coreg] 6.25 mg PO BID #60 tablet Hydrochlorothiazide [HCTZ] 25 mg PO QDAY #30 tablet Lisinopril [Zestril TAB] 40 mg PO QDAY #30 tablet Nitroglycerin [Nitrostat] 0.4 mg SL Q5M PRN #30 tablet PRN Reason: Chest Pain
[2017-05-07] MEDS: ASPIRIN PR SCH (13:45)
[2017-05-07] MEDS ORDERED: ATIVAN IV ONE (16:15)
[2017-05-07] MEDS: MORPHINE IV PRN ×2 (16:27→21:48)
[2017-05-07] MEDS: PERCOCET 5/325 PO PRN (19:33)
[2017-05-07] MEDS ORDERED: ZOFRAN IV PRN (21:24)
--- NOTE | 2017-05-08 00:02 | Progress Note ---
Assessment and Plan // Severe headache - could be from uncontrolled BP vs side effects from sedative used during cath - will obtain CT head, iv morphin as needed, tight control of BP // Chest pain due to CAD - pt with h/o HTN untreated, strong FH and tobacco abuse - Placed on Aspirin, statin, as needed SL NTG and iv morphin for pain, cardiac diet - Cardiology was consulted. CE normal with no acute change in EKG - Reversible lateral wall defect on MPI, Limiting shortness of breath on stress treadmill test - Coronary angiography showed Moderate diffuse atherosclerosis of a small diagonal branch of LAD - cardiology recommended medical management // Hypertensive urgency - Adjust BP medications to keep BP <140, Hydralazine iv as needed - cont coreg, HcTZ and lisinopril for now, will add CCB if needed // Hyperlipidemia, cont statin // Acute combined systolic and diastolic heart failure - LVEF 40-45% - cont BB, AcEi, diuretics // Tobacco abuse/ Noncompliance - counseled Brief history: 41-year-old female with a history of hypertension not on any home medications, tobacco abuse presented to the hospital with sudden onset of intermittent chest pain for 1 day. Radiological test: Chest x-ray: report reviewed (no, infiltrates, mild cardiomegaly) CT scan - chest: report reviewed (no PE) Myocardial stress stress: High risk myocardial perfusion scan associated with one-year cardiovascular event of greater than 3%, findings are suggestive of ischemia in the circumflex artery distribution, severe to 11 ventricle with an ejection fraction measured at 24%. Limiting shortness of breath on the treadmill. 2-D echocardiogram; Global left ventricular systolic function is mildly decreased, estimated EF 40-45% Cardiac cath completed via R radial. No complications. Findings: 1. Moderate diffuse atherosclerosis of a small diagonal branch of LAD 2. Otherwise, angiographically normal coronaries. 3. Nonischemic CM, EF 35-40%. Hospitalist Physical exam: GENERAL: well-developed and well-nourished AAF lying on bed appeared to be in moderate discomfort from headache. HEENT: Normocephalic. Atraumatic. No conjunctival congestion or icterus. Patient has moist mucous membranes. NECK: Supple. Trachea midline. CHEST/LUNGS: Clear to auscultated bilaterally, breathing nonlabored. No wheezes crackles or rhonchi. HEART/CARDIOVASCULAR: Regular in rate and rhythm. S1 and S2 positive. ABDOMEN: Abdomen is soft, nontender. Patient has normal bowel sounds. SKIN: There is no rash. Warm and dry. NEURO: No focal motor deficit. Follows command. MUSCULOSKELETAL: No joint effusion or tenderness. EXTRIMITY: No edema, no cyanosis or clubbing. PSYCH: Cooperative. Subjective Date of service: 05/07/17 Principal diagnosis: Chest Pain Interval history: Patient seen and examined. Medical records and medication list reviewed. s/p cath today Patient c/o severe headache following the cardiac cath, BP uncontrolled Discussed plan of care at bedside with patient. Objective - Constitutional Vitals: Vital Signs - 12hr 05/07/17 05/07/17 05/07/17 12:36 13:48 14:54 Temperature 98.0 F Pulse Rate 74 77 77 Respiratory 19 19 Rate Blood Pressure 183/101 156/101 156/101 Blood Pressure [Left] O2 Sat by Pulse 97 98 Oximetry 05/07/17 05/07/17 05/07/17 15:17 20:27 21:45 Temperature 99.4 F Pulse Rate 76 78 74 Respiratory 20 Rate Blood Pressure 176/83 163/80 Blood Pressure 187/100 [Left] O2 Sat by Pulse 99 97 Oximetry - Labs CBC & Chem 7: 05/05/17 03:06 05/05/17 03:06
[2017-05-08] MEDS: PERCOCET 5/325 PO PRN (07:34)
--- NOTE | 2017-05-08 07:56 | Progress Note ---
Assessment and Plan Cardiomyopathy, non-ischemia LVEF 40-45% Non-obstructive coronary artery disease by [facility] this admission Systemic Hypertension Hyperlipidemia Acute combined systolic and diastolic heart failure - resolved Recommendations: Continue current management Follow-up with [facility] will be scheduled prior to discharge Xanax prn for anxiety Subjective Date of service: 05/08/17 Principal diagnosis: Chest Pain Interval history: Patient denies chest pain She is complaining of headache and feeling very anxious No events on tele Objective Vital Signs Temp Pulse Resp Resp BP BP Pulse Ox 05/08/17 01:05 98.4 F 68 18 127/62 95 05/07/17 22:00 73 18 100 05/07/17 21:45 74 163/80 05/07/17 20:27 99.4 F 78 20 187/100 97 05/07/17 15:17 76 176/83 99 05/07/17 14:54 77 156/101 05/07/17 13:48 77 19 156/101 98 05/07/17 12:36 98.0 F 74 19 183/101 97 05/07/17 11:32 73 168/108 05/07/17 11:31 73 168/108 05/07/17 11:22 98.2 F 73 17 168/108 97 05/07/17 11:18 62 05/07/17 10:50 98.0 F 73 18 178/109 97 05/07/17 10:00 62 18 - Physical Examination HEENT: Positive: PERRL Neck: Positive: neck supple Cardiac: Positive: Reg Rate and Rhythm Lungs: Positive: Normal Exam Neuro: Positive: Grossly Intact Abdomen: Positive: Soft Skin: Positive: Clear Extremities: Absent: edema
[2017-05-08] MEDS ORDERED: XANAX PO PRN (09:00)
[2017-05-08] MEDS: PROTONIX PO SCH (09:36)
[2017-05-08] MEDS: ZESTRIL PO SCH (09:36)
[2017-05-08] MEDS: HCTZ PO SCH (09:36)
[2017-05-08] MEDS: ASPIRIN PR SCH (09:37)
[2017-05-08] MEDS: COREG PO SCH (09:37)
[2017-05-08] MEDS: MORPHINE IV PRN (13:03)
[2017-05-08] MEDS ORDERED: NORVASC PO SCH (15:00)
[2017-05-08 16:38] VITALS: BP 136/77
== END 2017-05-08 17:10 | disposition home or self-care (01) | DRG 286 ==
LOC: ED 02:12 → 4A 08:29
PROVIDERS: ADMIT Internal Medicine; ATTEND Internal Medicine
PROC: 4A023N7 Measurement of Cardiac Sampling and Pressure, Left Heart, Percutaneous Approach (ICD-10-PCS; principal; 2017-05-07)
PROC: B2111ZZ Fluoroscopy of Multiple Coronary Arteries using Low Osmolar Contrast (ICD-10-PCS; 2017-05-07)
PROC: B2151ZZ Fluoroscopy of Left Heart using Low Osmolar Contrast (ICD-10-PCS; 2017-05-07)
DX: I25.10 Atherosclerotic heart disease of native coronary artery without angina pectoris (principal); I50.41 Acute combined systolic (congestive) and diastolic (congestive) heart failure; I16.0 Hypertensive urgency; F17.200 Nicotine dependence, unspecified, uncomplicated; E78.5 Hyperlipidemia, unspecified; R51 Headache; I42.9 Cardiomyopathy, unspecified; E66.9 Obesity, unspecified; I11.0 Hypertensive heart disease with heart failure; Z71.6 Tobacco abuse counseling; Z91.19 Patient's noncompliance with other medical treatment and regimen; Z68.37 Body mass index [BMI] 37.0-37.9, adult; Z90.710 Acquired absence of both cervix and uterus; Z72.89 Other problems related to lifestyle; Z82.3 Family history of stroke; Z82.49 Family history of ischemic heart disease and other diseases of the circulatory system
CPT/HCPCS: 36415; 71046; 71275; 78452; 80048; 80061; 82962; 83036; 83880; 84484; 85025; 85379; 85610; 85730; 93005; 93010; 93017; 93306; 93458; 96374; 99406; A9270-GY; A9502; C1894; J0360; J1200; J1644; J1720; J1940; J2060; J2250; J2270; J2405; J2785; J3010; J7040; Q9967

== ENCOUNTER 2018-05-18 17:52 | Emergency (ER) | payer OTHER ==
--- NOTE | 2018-05-18 18:06 | Consultation ---
History of Present Illness Consult date: 05/18/18 Chief complaint: speech impairment Medications and Allergies Allergies Allergy/AdvReac Type Severity Reaction Status Date / Time Iodinated Contrast- Oral and Allergy Hives Verified 05/18/18 18:01 IV Dye nickel Allergy Rash Verified 05/18/18 18:01 Home Medications Medication Instructions Recorded Confirmed Last Taken Type Aspirin [Aspirin BABY CHEW TAB] 81 mg PO QDAY #30 tab.chew 05/07/17 Unknown Rx AtorvaSTATin [Lipitor] 40 mg PO QHS #30 tablet 05/07/17 Unknown Rx Carvedilol [Coreg] 6.25 mg PO BID #60 tablet 05/07/17 Unknown Rx Lisinopril [Zestril TAB] 40 mg PO QDAY #30 tablet 05/07/17 Unknown Rx Nitroglycerin [Nitrostat] 0.4 mg SL Q5M PRN #30 tablet 05/07/17 Unknown Rx hydroCHLOROthiazide [HCTZ] 25 mg PO QDAY #30 tablet 05/07/17 Unknown Rx Butalb/Acetamin/Caff 50-325-40 1 tab PO Q6HR PRN #30 tab 05/08/17 Unknown Rx [Fioricet] amLODIPine [Norvasc] 10 mg PO QDAY #30 tablet 05/08/17 Unknown Rx - Level of Consciousness 1a. Level of Consciousness: alert/keenly responsive - LOC Questions 1b. LOC Questions: answers both correctly - LOC Command 1c. LOC Commands: performs tasks correctly - Best Gaze 2. Best Gaze: normal - Visual 3. Visual: no visual loss - Facial Palsy 4. Facial Palsy: normal symmetrical movement - Motor Arm 5a. Motor Arm Left: no drift 5b. Motor Arm Right: no drift - Motor Leg 6a. Motor Leg Left: no drift 6b. Motor Leg Right: no drift - Limb Ataxia 7. Limb Ataxia: absent - Sensory 8. Sensory: normal - Best Language 9. Best Language: severe aphasia - Dysarthria 10. Dysarthria: severe dysarthria - Extinction and Inattention 11. Extinction/Inattention: no abnormality - Scoring Total Score: 4 Stroke Severity: Minor Stroke Assessment and Plan Date of Service 05/18/2018 [facility] Consult [facility] Comments: Last time known well: _ 05/18/18 AM, cannot say exact time Door time: _ [facility] contacted: _1800 [facility] at bedside: _1803 NIHSS assessment time: _180 consult end time: _1814 Impression: speech impairment and headache due to Intracranial Hemorrhage tPA decision and other recommendations: _ Patient is not a tPA candidate Head CT did show acute hemorrhage. Recommendations NPO STAT neurosurgery consult Keep SBP<160 Discussed with ED physician/medical staff Reason for Stroke Alert and History of Present Illness: _ Patient is a 42 years old female , with no known past medical history. last know well: 05/18/18 AM, cannot say exact time in ER systolic Blood Pressure: 231 Review of Systems: Constitutional: Negative except as documented in history of present illness. Eye: Negative except as documented in history of present illness. Ear/Nose/Mouth/Throat: Negative except as documented in history of present illness. Respiratory: Negative except as documented in history of present illness. Cardiovascular: Negative except as documented in history of present illness. Gastrointestinal: Negative except as documented in history of present illness. Musculoskeletal: Negative except as documented in history of present illness. Neurologic: Negative except as documented in history of present illness. Examination: NIHSS ___ 4 Medical Decision Making: - Extensive number of diagnosis or management options are considered above. - Extensive amount of complex data reviewed. - High risk of complication and/or morbidity or mortality are associated with differential diagnostic considerations above. - There may be Uncertain outcome and increased probability of prolonged functional impairment or high probability of severe prolonged functional impairment associated with some of these differential diagnoses. Medical Data Reviewed: 1.Data reviewed include clinical labs, radiology, Medical Tests; 2.Tests results discussed w/performing or interpreting physician; 3.Obtaining/reviewing old medical records; 4.Obtaining case history from another source; 5.Independent review of image, tracing or specimen. When possible Patient/family were informed the Neurology Consult would happen via telehealth (remote video) and consented to receiving care in this manner. Case discussed with the Medical staff. Critical Care notation: I was called to see this critical patient emergently. I personally evaluated this critical patient for acute stroke evaluation and determining their eligibility for IV Alteplase and interventional therapies. I have spent approximately _12_ minutes with the patient, including time at bedside, time discussing the case with other physicians, reviewing plan of care, and time independently reviewing the records and scans.
[2018-05-18] MEDS ORDERED: NORMODYNE IV ONE ×2 (18:21→18:22)
--- NOTE | 2018-05-18 18:25 | Cat Scan Report ---
PROCEDURE: CT HEAD/BRAIN WO CON TECHNIQUE: Computerized tomography of the head was performed without contrast material. HISTORY: slurred speech COMPARISONS: None . FINDINGS: There is acute parenchymal hemorrhage centered in the left thalamus measuring 2.5 x 1.2 x 2.0 cm, wit h possible small amount of hemorrhage extending into the left lateral ventricle. There also may be a small amount of extension into the left ambient cistern. There is no significant mass effect. No midl ine shift. The basal cisterns are preserved. Intracranial arteries are symmetric in density. Calvariu m is intact. The visualized paranasal sinuses and mastoids are aerated. IMPRESSION: Parenchymal hemorrhage centered in the left thalamus as described above. Findings were discussed by betsy diaz with Dr. Ponce at 5:19 PM central standard time on 05/18/2018. This document is electronically signed by Sheridan Stern MD., May 18 2018 06:22:42 PM ET
--- NOTE | 2018-05-18 18:26 | Emergency Department Report ---
ED Neuro Deficit HPI - General Chief Complaint: Neuro Symptoms/Deficit Stated Complaint: SLURR SPEECH Time Seen by Provider: 05/18/18 18:08 Source: patient Mode of arrival: Ambulatory Limitations: No Limitations - History of Present Illness Initial Comments: 42-year-old female presents to ED with headache and difficulty speaking. Patient states her symptoms began this morning upon awakening at approximately 7 AM. Patient reports history of chronic headaches, and reports having a headache yesterday, however she reports her speech was normal at that time. The patient denies weakness or sensory deficits. Patient has history of hypertension, has b een out of her blood pressure medication for approximately one month now. Patient reports tobacco use, denies EtOH and drug use. The patient is moderately aphasic. Able to shake her head yes and no to most questions. -: This morning (7 AM) Location: speech Presenting Symptoms: Present: Unable to Speak Clearly History of same: No Severity: severe On Anticoagulants: No Context: other (woke with symptoms) Associated Symptoms: headaches - Related Data Home Medications: Previous Rx's Medication Instructions Recorded Last Taken Type Aspirin [Aspirin BABY CHEW TAB] 81 mg PO QDAY #30 tab.chew 05/07/17 Unknown Rx AtorvaSTATin [Lipitor] 40 mg PO QHS #30 tablet 05/07/17 Unknown Rx Carvedilol [Coreg] 6.25 mg PO BID #60 tablet 05/07/17 Unknown Rx Lisinopril [Zestril TAB] 40 mg PO QDAY #30 tablet 05/07/17 Unknown Rx Nitroglycerin [Nitrostat] 0.4 mg SL Q5M PRN #30 tablet 05/07/17 Unknown Rx hydroCHLOROthiazide [HCTZ] 25 mg PO QDAY #30 tablet 05/07/17 Unknown Rx Butalb/Acetamin/Caff 50-325-40 1 tab PO Q6HR PRN #30 tab 05/08/17 Unknown Rx [Fioricet] amLODIPine [Norvasc] 10 mg PO QDAY #30 tablet 05/08/17 Unknown Rx Allergies/Adverse Reactions: Allergies Allergy/AdvReac Type Severity Reaction Status Date / Time Iodinated Contrast- Oral and Allergy Hives Verified 05/18/18 18:01 IV Dye nickel Allergy Rash Verified 05/18/18 18:01 ED Review of Systems ROS: Stated complaint: SLURR SPEECH Other details as noted in HPI Comment: All other systems reviewed and negative Neurological: headache, other (reports difficulty speaking). denies: weakness ED Past Medical Hx - Past Medical History Hx Hypertension: Yes Hx Congestive Heart Failure: No Hx Diabetes: No Hx Asthma: No Hx COPD: No - Surgical History Past Surgical History?: Yes Additional Surgical History: Hyst 2006 - Social History Smoking Status: Current Every Day Smoker - Medications Home Medications: Home Medications Medication Instructions Recorded Confirmed Last Taken Type Aspirin [Aspirin BABY CHEW TAB] 81 mg PO QDAY #30 tab.chew 05/07/17 Unknown Rx AtorvaSTATin [Lipitor] 40 mg PO QHS #30 tablet 05/07/17 Unknown Rx Carvedilol [Coreg] 6.25 mg PO BID #60 tablet 05/07/17 Unknown Rx Lisinopril [Zestril TAB] 40 mg PO QDAY #30 tablet 05/07/17 Unknown Rx Nitroglycerin [Nitrostat] 0.4 mg SL Q5M PRN #30 tablet 05/07/17 Unknown Rx hydroCHLOROthiazide [HCTZ] 25 mg PO QDAY #30 tablet 05/07/17 Unknown Rx Butalb/Acetamin/Caff 50-325-40 1 tab PO Q6HR PRN #30 tab 05/08/17 Unknown Rx [Fioricet] amLODIPine [Norvasc] 10 mg PO QDAY #30 tablet 05/08/17 Unknown Rx ED Neuro Physical Exam - General Limitations: No Limitations General appearance: alert Suspected Stroke: Yes - Head Head exam: Present: atraumatic, normocephalic - Eye Eye exam: Present: normal appearance, PERRL, EOMI - ENT ENT exam: Present: mucous membranes moist - Neck Neck exam: Present: normal inspection - Respiratory Respiratory exam: Present: normal lung sounds bilaterally. Absent: respiratory distress - Cardiovascular Cardiovascular Exam: Present: regular rate, normal rhythm - GI/Abdominal GI/Abdominal exam: Present: soft. Absent: distended, tenderness - Extremities Exam Extremities exam: Present: normal inspection - Neurological Exam Neurological exam: Present: alert - NIHSS Assessment Interval: Baseline 1a. Level of Consciousness: alert/keenly responsive 1b. LOC Questions: answers both correctly 1c. LOC Commands: performs tasks correctly 2. Best Gaze: normal 3. Visual: no visual loss 4. Facial Palsy: normal symmetrical movement 5b. Motor Arm Right: no drift 5a. Motor Arm Left: no drift 6a. Motor Leg Left: no drift 6b. Motor Leg Right: no drift 7. Limb Ataxia: absent 8. Sensory: normal 9. Best Language: severe aphasia 10. Dysarthria: normal 11. Extinction/Inattention: no abnormality Total Score: 2 Stroke Severity: Minor Stroke - Psychiatric Psychiatric exam: Present: normal affect, normal mood - Skin Skin exam: Present: warm, dry, intact, normal color. Absent: rash ED Course Vital Signs 05/18/18 05/18/18 18:27 18:35 Temperature 98.8 F Pulse Rate 104 H 80 Respiratory 16 Rate Blood Pressure 236/151 Blood Pressure 236/151 [Right] O2 Sat by Pulse 98 Oximetry - Reevaluation(s) Reevaluation #1: 05/18/18 18:33 Contacted [facility]. No beds available. - Consultations Consultation #1: 05/18/18 18:[address] Beck, NS, at [facility] 05/18/18 18:51 Also spoke w/ Dr Jordan, neuro animal treatment investigator, aware of pt. Awaiting bed assignment. - Lab Data Result diagrams: 05/18/18 18:24 05/18/18 18:24 Lab Results 05/18/18 05/18/18 05/18/18 Range/Units 18:24 18:24 18:24 WBC 7.9 (4.5-11.0) K/mm3 RBC 6.54 H (3.65-5.03) M/mm3 Hgb 16.0 H (10.1-14.3) gm/dl Hct 48.3 H (30.3-42.9) % MCV 74 L (79-97) fl MCH 24 L (28-32) pg MCHC 33 (30-34) % RDW 17.9 H (13.2-15.2) % Plt Count 219 (140-440) K/mm3 Lymph % (Auto) 24.8 (13.4-35.0) % [place] % (Auto) 4.8 (0.0-7.3) % Eos % (Auto) 0.6 (0.0-4.3) % Baso % (Auto) 1.2 (0.0-1.8) % Lymph # 1.9 (1.2-5.4) K/mm3 [place] # 0.4 (0.0-0.8) K/mm3 Eos # 0.1 (0.0-0.4) K/mm3 Baso # 0.1 (0.0-0.1) K/mm3 Seg Neutrophils % 68.6 (40.0-70.0) % Seg Neutrophils # 5.4 (1.8-7.7) K/mm3 PT 13.7 (12.2-14.9) Sec. INR 0.99 (0.87-1.13) APTT 26.4 (24.2-36.6) Sec. Thrombin Time (15.1-19.6) Sec. Sodium 139 (137-145) mmol/L Potassium 4.1 (3.6-5.0) mmol/L Chloride 97.5 L (98-107) mmol/L Carbon Dioxide 27 (22-30) mmol/L Anion Gap 19 mmol/L BUN 16 (7-17) mg/dL Creatinine 0.9 (0.7-1.2) mg/dL Estimated GFR > 60 ml/min BUN/Creatinine Ratio 18 % Glucose 105 H (65-100) mg/dL Calcium 9.6 (8.4-10.2) mg/dL Troponin T 0.024 (0.00-0.029) ng/mL 05/18/18 Range/Units 18:24 WBC (4.5-11.0) K/mm3 RBC (3.65-5.03) M/mm3 Hgb (10.1-14.3) gm/dl Hct (30.3-42.9) % MCV (79-97) fl MCH (28-32) pg MCHC (30-34) % RDW (13.2-15.2) % Plt Count (140-440) K/mm3 Lymph % (Auto) (13.4-35.0) % [place] % (Auto) (0.0-7.3) % Eos % (Auto) (0.0-4.3) % Baso % (Auto) (0.0-1.8) % Lymph # (1.2-5.4) K/mm3 [place] # (0.0-0.8) K/mm3 Eos # (0.0-0.4) K/mm3 Baso # (0.0-0.1) K/mm3 Seg Neutrophils % (40.0-70.0) % Seg Neutrophils # (1.8-7.7) K/mm3 PT (12.2-14.9) Sec. INR (0.87-1.13) APTT (24.2-36.6) Sec. Thrombin Time 15.8 (15.1-19.6) Sec. Sodium (137-145) mmol/L Potassium (3.6-5.0) mmol/L Chloride (98-107) mmol/L Carbon Dioxide (22-30) mmol/L Anion Gap mmol/L BUN (7-17) mg/dL Creatinine (0.7-1.2) mg/dL Estimated GFR ml/min BUN/Creatinine Ratio % Glucose (65-100) mg/dL Calcium (8.4-10.2) mg/dL Troponin T (0.00-0.029) ng/mL - EKG Data -: EKG Interpreted by Mt EKG shows normal: sinus rhythm, axis, intervals, QRS complexes Rate: normal Interpretation: other (T wave inversions I, aVL) - Radiology Data Radiology results: report reviewed, image reviewed - Medical Decision Making 42-year-old female with hemorrhagic CVA. Severe aphasia on exam. Patient reports being symptomatic signs early this morning at approximately [address] head shows left parenchymal hemorrhage with small amount of hemorrhage extending into the left ventricle. No evidence of mass effect or midline shift. Patient comfortable. Cardene drip infusing, call systolic BP of 160. Patient has been accepted to [facility] [place], [place], currently awaiting bed assignment in transport. Neuro exam is unchanged, no decline in mental status. - Differential Diagnosis CVA - Thrombolytic Inclusion/Exclusion Thrombolytic Exclusion Criteria: Symptom Onset > 3 Hours Critical Care Time: Yes Critical care time in (mins) excluding proc time.: 60 Critical care attestation.: If time is entered above; I have spent that time in minutes in the direct care of this critically ill patient, excluding procedure time. Critical Care Time: 60 min ED Disposition Clinical Impression: Hemorrhagic cerebrovascular accident (CVA) Disposition: DC/TX-70 ANOTHER TYPE [facility]THCARE Is pt being admited?: No Condition: Stable Referrals: JOSE MCCAULEY MD [Primary Care Provider] - 3-5 Days Time of Disposition: 18:52
[2018-05-18 18:32] LABS: Basophils # (Auto) 0.1 K/mm3 (0.0-0.1); Basophils % (Auto) 1.2 % (0.0-1.8); Eosinophils # (Auto) 0.1 K/mm3 (0.0-0.4); Eosinophils % (Auto) 0.6 % (0.0-4.3); Hematocrit 48.3 % (30.3-42.9); Lymphocytes # (Auto) 1.9 K/mm3 (1.2-5.4); Lymphocytes % (Auto) 24.8 % (13.4-35.0); Mean Corpuscular HGB Conc 33 % (30-34); Mean Corpuscular Volume 74 fl (79-97); Monocytes # (Auto) 0.4 K/mm3 (0.0-0.8); Monocytes % (Auto) 4.8 % (0.0-7.3); Platelet Count 219 K/mm3 (140-440); Red Blood Count 6.54 M/mm3 (3.65-5.03); Red Cell Distribution Width 17.9 % (13.2-15.2)
[2018-05-18 18:47] LABS: BUN/Creatinine Ratio 18; Blood Urea Nitrogen 16 mg/dL (7-17); Calcium 9.6 mg/dL (8.4-10.2); Hemolysis Index 8; INR 0.99 (0.87-1.13); Partial Thromboplastin Time 26.4 Sec. (24.2-36.6)
[2018-05-18] MEDS ORDERED: MORPHINE ONE (19:15)
[2018-05-18] MEDS ORDERED: ZOFRAN ONE (19:15)
[2018-05-18] MEDS ORDERED: MORPHINE IV ONE (19:18)
[2018-05-18] MEDS ORDERED: ZOFRAN IV ONE (19:18)
[2018-05-18] MEDS ORDERED: CARDENE 50 MG in NACL 0.9% 250ML 230 ML IV SCH (19:30)
[2018-05-18 20:34] VITALS: BP 153/77
== END 2018-05-18 20:34 | disposition other institution (70) ==
LOC: ED 17:52
DX: I63.9 Cerebral infarction, unspecified (principal); F17.200 Nicotine dependence, unspecified, uncomplicated; I10 Essential (primary) hypertension; Z90.710 Acquired absence of both cervix and uterus; Z79.899 Other long term (current) drug therapy; Z91.041 Radiographic dye allergy status; Z88.8 Allergy status to other drugs, medicaments and biological substances
CPT/HCPCS: 36415; 70450; 80048; 82962; 84484; 85025; 85610; 85670; 85730; 93005; 93010; 96365; 96375; 99291; J2270; J2405; J7050